=== PATIENT | male | born 1965 | race Caucasian/White ===

== ENCOUNTER 2017-12-10 22:04 | Inpatient (IN) | payer OTHER ==
[2017-12-11 02:30] LABS: ADD MAN DIFF? NO
[2017-12-11 02:33] LABS: BASOPHIL # 0.1 10^3/ul (0.0-0.1); BASOPHILS % 0.6 % (0.0-2.0); EOSINOPHILS # 0.2 10^3/ul (0.0-0.5); EOSINOPHILS % 2.1 % (0.0-7.0); HEMATOCRIT 45.4 % (42.0-52.0); HEMOGLOBIN 14.8 g/dl (14.0-18.0); LYMPHOCYTES % 20.8 % (15.0-51.0); MEAN CORPUSCULAR HEMOGLOBIN 26.9 pg (29.0-33.0); MEAN CORPUSCULAR HGB CONC 32.6 g/dl (32.0-37.0); MEAN CORPUSCULAR VOLUME 82.4 fl (82.0-101.0); MEAN PLATELET VOLUME 9.4 fl (7.4-10.4); MONOCYTE # 0.7 10^3/ul (0.3-0.9); MONOCYTES % 7.5 % (0.0-11.0); NEUTROPHIL # 6.6 10^3/ul (1.6-7.5); NEUTROPHILS % 68.6 % (39.0-77.0); PLATELET COUNT 187 10^3/UL (140-415); RED BLOOD COUNT 5.51 10^6/ul (4.70-6.10); RED CELL DISTRIBUTION WIDTH 14.3 % (11.5-14.5)
[2017-12-11 02:33] LABS: WHITE BLOOD COUNT 9.7 10^3/ul (4.8-10.8)
[2017-12-11 02:58] LABS: ALANINE AMINOTRANSFERASE 25 IU/L (13-69); ALBUMIN 3.8 g/dl (3.3-4.9); ALBUMIN/GLOBULIN RATIO 1.26; ALKALINE PHOSPHATASE 69 IU/L (42-121); ANION GAP 15 (8-16); ASPARTATE AMINO TRANSFERASE 15 IU/L (15-46); BILIRUBIN,INDIRECT 0.3 mg/dl (0-1.1); BILIRUBIN,TOTAL 0.3 mg/dl (0.2-1.3); BLOOD UREA NITROGEN 13 mg/dl (7-20); CALCIUM 8.9 mg/dl (8.4-10.2); CARBON DIOXIDE 27 mmol/L (21-31); CHLORIDE 98 mmol/L (97-110); CREATININE 0.88 mg/dl (0.61-1.24); POTASSIUM 4.3 mmol/L (3.5-5.1); SODIUM 136 mmol/L (135-144); TOTAL PROTEIN 6.8 g/dl (6.1-8.1)
[2017-12-11] MEDS: LEVALBUTEROL (NEB) 1.25 MG/0.5 ML AMP INH (02:59)
[2017-12-11] MEDS: IPRATROPIUM (NEB) 0.5 MG/2.5 ML AMP NEB (02:59)
[2017-12-11 03:06] LABS: MAGNESIUM 1.8 mg/dl (1.7-2.5)
[2017-12-11 03:08] LABS: B-TYPE NATRIURETIC PEPTIDE 82 PG/ML (0-125)
[2017-12-11 03:09] LABS: GLUCOSE 409 mg/dl (70-220); TROPONIN-I < 0.012 ng/ml (0.000-0.120)
[2017-12-11 03:16] LABS: INR 0.99; PROTIME 13.2 Sec (11.9-14.9)
[2017-12-11 03:17] LABS: PARTIAL THROMBOPLASTIN TIME 29.9 Sec (25.0-35.0)
[2017-12-11] MEDS ORDERED: morphine 2 MG INJ IV (04:00)
[2017-12-11] MEDS ORDERED: ONDANSETRON 4 MG INJ IV (04:00)
[2017-12-11] MEDS ORDERED: GLUCOSE GEL 15 GRAM TUBE PO ×2 (04:00)
[2017-12-11] MEDS ORDERED: NITROGLYCERIN (SL) 0.4 MG TAB SL (04:00)
[2017-12-11] MEDS ORDERED: NACL 0.9% 3 ML SYG IV (04:00)
[2017-12-11] MEDS ORDERED: GLUCOSE GEL 15 GRAM TUBE BUCCAL (04:00)
[2017-12-11] MEDS ORDERED: GLUCAGON 1 MG INJ IM (04:00)
[2017-12-11] MEDS ORDERED: DEXTROSE 50% 50 ML SYRINGE IV ×2 (04:00)
[2017-12-11] MEDS: INSULIN LISPRO 100 UNIT/ML VIAL SC (04:41)
[2017-12-11] MEDS: METHYLPREDNISOLONE 125 MG INJ IV ×2 (04:42→09:00)
[2017-12-11] MEDS: LEVOFLOXACIN 750MG/D5W (PMX) 150 ML IVPB (04:42)
[2017-12-11 05:51] LABS: CREATINE KINASE 89 IU/L (23-200)
[2017-12-11 06:04] LABS: CK INDEX 2.2
[2017-12-11 06:17] LABS: CK-MB 1.99 ng/ml (0.0-2.4); TROPONIN-I < 0.012 ng/ml (0.000-0.120)
[2017-12-11] MEDS: FUROSEMIDE 20 MG TAB PO (06:21)
[2017-12-11] MEDS: ALBUTEROL/IPRATROPIUM (NEB) 3 ML AMP INH ×3 (08:00→22:33)
[2017-12-11] MEDS: metFORMIN 850 MG TAB PO ×3 (09:00→16:57)
[2017-12-11] MEDS ORDERED: NON-FORMULARY/PATIENT OWN MED (Liraglutide (Victoza 2-Pak) 1.2 MG) SQ (09:00)
[2017-12-11] MEDS ORDERED: NON-FORMULARY/PATIENT OWN MED (Dapagliflozin Propanediol (Farxiga) 10 MG) PO (09:00)
[2017-12-11] MEDS: ASPIRIN 81 MG TAB PO (09:00)
[2017-12-11] MEDS: FAMOTIDINE 20 MG TAB PO (09:01)
[2017-12-11] MEDS: LISINOPRIL 10 MG TAB PO (09:01)
[2017-12-11] MEDS: GABAPENTIN 300 MG CAP PO ×3 (09:01→20:06)
[2017-12-11] MEDS: ENOXAPARIN 40 MG/0.4 ML SYG SC (09:02)
[2017-12-11] MEDS: INSULIN ASPART [NOVOLOG] 3 ML PEN SC ×7 (09:05→23:58)
[2017-12-11 11:05] LABS: CREATINE KINASE 82 IU/L (23-200)
[2017-12-11 11:16] LABS: CK INDEX 2.5
[2017-12-11 11:20] LABS: CK-MB 2.01 ng/ml (0.0-2.4); TROPONIN-I < 0.012 ng/ml (0.000-0.120)
[2017-12-11] MEDS: GUAIFENESIN/DM 5ML CUP PO (11:50)
[2017-12-11] MEDS: FUROSEMIDE 20 MG INJ IV (17:22)
[2017-12-11] MEDS: ATORVASTATIN 20 MG TAB PO (20:06)
[2017-12-11] MEDS: INSULIN GLARGINE [LANtus] 3 ML PEN SC (20:15)
[2017-12-12] MEDS: GUAIFENESIN/DM 5ML CUP PO (01:10)
[2017-12-12] MEDS: ACCU-CHEK XX (02:43)
[2017-12-12] MEDS: SOD CHLORIDE 0.9% 500 ML IV ×2 (03:25→06:21)
[2017-12-12] MEDS: INSULIN ASPART [NOVOLOG] 3 ML PEN SC ×9 (03:29→21:56)
[2017-12-12] MEDS: FUROSEMIDE 20 MG INJ IV ×2 (06:21→17:21)
[2017-12-12] MEDS: ALBUTEROL/IPRATROPIUM (NEB) 3 ML AMP INH ×4 (07:50→20:06)
[2017-12-12] MEDS: metFORMIN 850 MG TAB PO ×3 (07:54→17:21)
[2017-12-12] MEDS: METHYLPREDNISOLONE 125 MG INJ IV (08:20)
[2017-12-12] MEDS: ASPIRIN 81 MG TAB PO (08:21)
[2017-12-12] MEDS: FAMOTIDINE 20 MG TAB PO (08:21)
[2017-12-12] MEDS: LISINOPRIL 10 MG TAB PO ×2 (08:22→20:39)
[2017-12-12] MEDS: GABAPENTIN 300 MG CAP PO ×3 (08:22→20:39)
[2017-12-12] MEDS: ENOXAPARIN 40 MG/0.4 ML SYG SC (08:23)
[2017-12-12 08:44] LABS: ADD MAN DIFF? NO
[2017-12-12 08:47] LABS: BASOPHILS % 0.2 % (0.0-2.0); EOSINOPHILS % 0.1 % (0.0-7.0); HEMATOCRIT 44.8 % (42.0-52.0); HEMOGLOBIN 14.4 g/dl (14.0-18.0); LYMPHOCYTES # 1.9 10^3/ul (0.8-2.9); LYMPHOCYTES % 9.7 % (15.0-51.0); MEAN CORPUSCULAR HEMOGLOBIN 26.6 pg (29.0-33.0); MEAN CORPUSCULAR HGB CONC 32.1 g/dl (32.0-37.0); MEAN CORPUSCULAR VOLUME 82.7 fl (82.0-101.0); MEAN PLATELET VOLUME 9.6 fl (7.4-10.4); MONOCYTE # 1.4 10^3/ul (0.3-0.9); NEUTROPHIL # 16.4 10^3/ul (1.6-7.5); NEUTROPHILS % 82.2 % (39.0-77.0); PLATELET COUNT 226 10^3/UL (140-415); RED BLOOD COUNT 5.42 10^6/ul (4.70-6.10); RED CELL DISTRIBUTION WIDTH 14.4 % (11.5-14.5)
[2017-12-12 08:47] LABS: WHITE BLOOD COUNT 19.9 10^3/ul (4.8-10.8)
[2017-12-12 09:10] LABS: ALANINE AMINOTRANSFERASE 30 IU/L (13-69); ALBUMIN 3.7 g/dl (3.3-4.9); ALBUMIN/GLOBULIN RATIO 1.05; ALKALINE PHOSPHATASE 69 IU/L (42-121); ANION GAP 15 (8-16); ASPARTATE AMINO TRANSFERASE 13 IU/L (15-46); BLOOD UREA NITROGEN 25 mg/dl (7-20); CARBON DIOXIDE 26 mmol/L (21-31); CHLORIDE 101 mmol/L (97-110); CHOL/HDL RATIO 5.9 RATIO; CHOLESTEROL 202 mg/dl (100-200); CREATININE 1.09 mg/dl (0.61-1.24); GLUCOSE 298 mg/dl (70-220); HDL CHOLESTEROL 34 mg/dl (28-71); LDL CHOLESTEROL,CALCULATED 138 mg/dl; MAGNESIUM 1.8 mg/dl (1.7-2.5); POTASSIUM 4.7 mmol/L (3.5-5.1); SODIUM 137 mmol/L (135-144); TOTAL PROTEIN 7.2 g/dl (6.1-8.1); TRIGLYCERIDES 152 mg/dl (0-149)
[2017-12-12 09:18] LABS: HEMOGLOBIN A1C 6.6 % (0-5.9)
[2017-12-12 09:54] LABS: BILIRUBIN,TOTAL 0.3 mg/dl (0.2-1.3)
[2017-12-12 09:55] LABS: BILIRUBIN,INDIRECT 0.3 mg/dl (0-1.1)
[2017-12-12 10:13] LABS: THYROID STIMULATING HORMONE 0.432 MIU/L (0.465-4.680)
[2017-12-12] MEDS: ATORVASTATIN 20 MG TAB PO (20:39)
[2017-12-12] MEDS: INSULIN GLARGINE [LANtus] 3 ML PEN SC (21:25)
[2017-12-13] MEDS: DIGOXIN 500 MCG INJ IV ×2 (00:01→06:18)
[2017-12-13] MEDS: ALBUTEROL/IPRATROPIUM (NEB) 3 ML AMP HHN (00:40)
[2017-12-13] MEDS: ACCU-CHEK XX (02:07)
[2017-12-13] MEDS: INSULIN ASPART [NOVOLOG] 3 ML PEN SC ×9 (02:16→22:07)
[2017-12-13] MEDS: FUROSEMIDE 20 MG INJ IV (06:17)
[2017-12-13] MEDS: LISINOPRIL 10 MG TAB PO ×2 (08:06→21:21)
[2017-12-13] MEDS: GABAPENTIN 300 MG CAP PO ×3 (08:07→21:23)
[2017-12-13] MEDS: FAMOTIDINE 20 MG TAB PO (08:07)
[2017-12-13] MEDS: ASPIRIN 81 MG TAB PO (08:07)
[2017-12-13] MEDS: ENOXAPARIN 40 MG/0.4 ML SYG SC (08:22)
[2017-12-13] MEDS: metFORMIN 850 MG TAB PO ×3 (08:48→17:21)
[2017-12-13] MEDS ORDERED: predniSONE 20 MG TAB PO (09:00)
[2017-12-13] MEDS: ALBUTEROL/IPRATROPIUM (NEB) 3 ML AMP INH ×4 (11:08→19:45)
[2017-12-13] MEDS: REGADENOSON 0.4 MG/5 ML SYG (12:15)
[2017-12-13] MEDS: FUROSEMIDE 40 MG INJ IV (17:22)
[2017-12-13] MEDS: ATORVASTATIN 20 MG TAB PO (21:21)
[2017-12-13] MEDS: INSULIN GLARGINE [LANtus] 3 ML PEN SC (21:42)
[2017-12-14] MEDS: ACCU-CHEK XX (02:12)
[2017-12-14] MEDS: FUROSEMIDE 40 MG INJ IV ×2 (06:03→17:17)
[2017-12-14 06:59] LABS: ADD MAN DIFF? NO
[2017-12-14 07:11] LABS: WHITE BLOOD COUNT 11.8 10^3/ul (4.8-10.8)
[2017-12-14 07:11] LABS: BASOPHILS % 0.3 % (0.0-2.0); EOSINOPHILS # 0.1 10^3/ul (0.0-0.5); EOSINOPHILS % 0.9 % (0.0-7.0); HEMATOCRIT 51.3 % (42.0-52.0); HEMOGLOBIN 16.4 g/dl (14.0-18.0); LYMPHOCYTES # 2.5 10^3/ul (0.8-2.9); LYMPHOCYTES % 20.8 % (15.0-51.0); MEAN CORPUSCULAR HEMOGLOBIN 26.4 pg (29.0-33.0); MEAN CORPUSCULAR VOLUME 82.6 fl (82.0-101.0); MEAN PLATELET VOLUME 9.5 fl (7.4-10.4); MONOCYTE # 1.1 10^3/ul (0.3-0.9); MONOCYTES % 9.4 % (0.0-11.0); NEUTROPHILS % 68.3 % (39.0-77.0); PLATELET COUNT 200 10^3/UL (140-415); RED BLOOD COUNT 6.21 10^6/ul (4.70-6.10); RED CELL DISTRIBUTION WIDTH 14.3 % (11.5-14.5)
[2017-12-14 07:18] LABS: MAGNESIUM 1.9 mg/dl (1.7-2.5)
[2017-12-14 07:18] LABS: PHOSPHORUS 4.4 mg/dl (2.5-4.9)
[2017-12-14 07:29] LABS: ALANINE AMINOTRANSFERASE 29 IU/L (13-69); ALBUMIN 3.8 g/dl (3.3-4.9); ALBUMIN/GLOBULIN RATIO 1.15; ALKALINE PHOSPHATASE 71 IU/L (42-121); ANION GAP 18 (8-16); ASPARTATE AMINO TRANSFERASE 15 IU/L (15-46); BILIRUBIN,INDIRECT 0.4 mg/dl (0-1.1); BILIRUBIN,TOTAL 0.4 mg/dl (0.2-1.3); BLOOD UREA NITROGEN 27 mg/dl (7-20); CALCIUM 8.8 mg/dl (8.4-10.2); CARBON DIOXIDE 28 mmol/L (21-31); CHLORIDE 99 mmol/L (97-110); CREATININE 0.86 mg/dl (0.61-1.24); GLUCOSE 237 mg/dl (70-220); POTASSIUM 4.5 mmol/L (3.5-5.1); SODIUM 140 mmol/L (135-144); TOTAL PROTEIN 7.1 g/dl (6.1-8.1)
[2017-12-14] MEDS: LISINOPRIL 10 MG TAB PO ×2 (08:33→20:25)
[2017-12-14] MEDS: FAMOTIDINE 20 MG TAB PO (08:33)
[2017-12-14] MEDS: metFORMIN 850 MG TAB PO ×3 (08:33→17:17)
[2017-12-14] MEDS: ASPIRIN 81 MG TAB PO (08:34)
[2017-12-14] MEDS: GABAPENTIN 300 MG CAP PO ×3 (08:34→20:25)
[2017-12-14] MEDS: INSULIN ASPART [NOVOLOG] 3 ML PEN SC ×7 (08:37→20:36)
[2017-12-14] MEDS: ENOXAPARIN 40 MG/0.4 ML SYG SC (08:37)
[2017-12-14] MEDS: ALBUTEROL/IPRATROPIUM (NEB) 3 ML AMP INH ×4 (09:33→20:21)
[2017-12-14] MEDS: ACETAMINOPHEN 325 MG TAB PO (19:48)
[2017-12-14] MEDS: ATORVASTATIN 40 MG TAB PO (20:25)
[2017-12-14] MEDS: INSULIN GLARGINE [LANtus] 3 ML PEN SC (20:28)
[2017-12-14] MEDS ORDERED: EXENATIDE 250 MCG/ML 2.4ML PEN SC (21:00)
[2017-12-15] MEDS: ACCU-CHEK XX (02:00)
[2017-12-15] MEDS: FUROSEMIDE 40 MG INJ IV ×2 (06:56→17:36)
[2017-12-15 07:24] LABS: ADD MAN DIFF? NO
[2017-12-15 07:27] LABS: WHITE BLOOD COUNT 10.9 10^3/ul (4.8-10.8)
[2017-12-15 07:27] LABS: BASOPHILS % 0.3 % (0.0-2.0); EOSINOPHILS # 0.2 10^3/ul (0.0-0.5); EOSINOPHILS % 1.8 % (0.0-7.0); HEMATOCRIT 51.8 % (42.0-52.0); HEMOGLOBIN 16.4 g/dl (14.0-18.0); LYMPHOCYTES # 2.5 10^3/ul (0.8-2.9); LYMPHOCYTES % 23.3 % (15.0-51.0); MEAN CORPUSCULAR HEMOGLOBIN 26.3 pg (29.0-33.0); MEAN CORPUSCULAR HGB CONC 31.7 g/dl (32.0-37.0); MEAN PLATELET VOLUME 9.1 fl (7.4-10.4); NEUTROPHIL # 7.1 10^3/ul (1.6-7.5); NEUTROPHILS % 65.2 % (39.0-77.0); PLATELET COUNT 198 10^3/UL (140-415); RED BLOOD COUNT 6.24 10^6/ul (4.70-6.10); RED CELL DISTRIBUTION WIDTH 14.1 % (11.5-14.5)
[2017-12-15 07:48] LABS: ANION GAP 13 (8-16); BLOOD UREA NITROGEN 31 mg/dl (7-20); CALCIUM 8.6 mg/dl (8.4-10.2); CARBON DIOXIDE 33 mmol/L (21-31); CHLORIDE 98 mmol/L (97-110); CREATININE 1.21 mg/dl (0.61-1.24); GLUCOSE 216 mg/dl (70-220); POTASSIUM 5.2 mmol/L (3.5-5.1); SODIUM 139 mmol/L (135-144)
[2017-12-15 07:51] LABS: PHOSPHORUS 4.2 mg/dl (2.5-4.9)
[2017-12-15 07:51] LABS: MAGNESIUM 1.8 mg/dl (1.7-2.5)
[2017-12-15] MEDS ORDERED: EMPAGLIFLOZIN 10 MG TABLET PO (08:00)
[2017-12-15] MEDS: FAMOTIDINE 20 MG TAB PO (08:26)
[2017-12-15] MEDS: REPAGLINIDE 2 MG TAB PO ×3 (08:26→17:33)
[2017-12-15] MEDS: LISINOPRIL 10 MG TAB PO (08:26)
[2017-12-15] MEDS: GABAPENTIN 300 MG CAP PO ×3 (08:26→21:00)
[2017-12-15] MEDS: ASPIRIN 81 MG TAB PO (08:27)
[2017-12-15] MEDS: metFORMIN 500 MG TAB PO ×3 (08:27→17:33)
[2017-12-15] MEDS: INSULIN ASPART [NOVOLOG] 3 ML PEN SC ×7 (08:28→22:05)
[2017-12-15] MEDS: ENOXAPARIN 40 MG/0.4 ML SYG SC (08:29)
[2017-12-15] MEDS: ALBUTEROL/IPRATROPIUM (NEB) 3 ML AMP INH ×4 (09:29→19:43)
[2017-12-15] MEDS: LINAGLIPTIN 5 MG TABLET PO (10:10)
[2017-12-15] MEDS: TIOTROPIUM 18 MCG CAPSULE INHA DEV INH (10:10)
[2017-12-15] MEDS: FLUTICASONE/VILANTEROL 100-25 INH (10:10)
[2017-12-15] MEDS: INSULIN GLARGINE [LANtus] 3 ML PEN SC ×2 (10:12→23:45)
[2017-12-15] MEDS: ATORVASTATIN 40 MG TAB PO (22:00)
[2017-12-15] MEDS: LOSARTAN 25 MG TAB PO (23:23)
[2017-12-16] MEDS: INSULIN GLARGINE [LANtus] 3 ML PEN SC ×2 (00:04→23:32)
[2017-12-16] MEDS: ACCU-CHEK XX (00:06)
[2017-12-16] MEDS: FUROSEMIDE 40 MG INJ IV ×2 (06:11→17:19)
[2017-12-16 07:59] LABS: ADD MAN DIFF? NO
[2017-12-16] MEDS: ALBUTEROL/IPRATROPIUM (NEB) 3 ML AMP INH ×4 (08:00→21:04)
[2017-12-16 08:16] LABS: BASOPHILS % 0.2 % (0.0-2.0); EOSINOPHILS # 0.3 10^3/ul (0.0-0.5); EOSINOPHILS % 2.3 % (0.0-7.0); LYMPHOCYTES # 2.8 10^3/ul (0.8-2.9); LYMPHOCYTES % 22.6 % (15.0-51.0); MEAN CORPUSCULAR HEMOGLOBIN 26.1 pg (29.0-33.0); MEAN CORPUSCULAR VOLUME 81.6 fl (82.0-101.0); MEAN PLATELET VOLUME 9.8 fl (7.4-10.4); MONOCYTES % 8.4 % (0.0-11.0); NEUTROPHIL # 8.1 10^3/ul (1.6-7.5); NEUTROPHILS % 66.2 % (39.0-77.0); PLATELET COUNT 198 10^3/UL (140-415); RED BLOOD COUNT 6.13 10^6/ul (4.70-6.10); RED CELL DISTRIBUTION WIDTH 14.5 % (11.5-14.5)
[2017-12-16 08:16] LABS: WHITE BLOOD COUNT 12.2 10^3/ul (4.8-10.8)
[2017-12-16] MEDS: REPAGLINIDE 2 MG TAB PO ×3 (08:20→17:16)
[2017-12-16] MEDS: FAMOTIDINE 20 MG TAB PO (08:21)
[2017-12-16] MEDS: LINAGLIPTIN 5 MG TABLET PO (08:21)
[2017-12-16] MEDS: GABAPENTIN 300 MG CAP PO ×3 (08:21→23:21)
[2017-12-16] MEDS: LOSARTAN 25 MG TAB PO ×2 (08:22→21:00)
[2017-12-16] MEDS: ASPIRIN 81 MG TAB PO (08:22)
[2017-12-16] MEDS: TIOTROPIUM 18 MCG CAPSULE INHA DEV INH (08:22)
[2017-12-16 08:23] LABS: ANION GAP 17 (8-16); BLOOD UREA NITROGEN 37 mg/dl (7-20); CALCIUM 8.6 mg/dl (8.4-10.2); CARBON DIOXIDE 32 mmol/L (21-31); CHLORIDE 93 mmol/L (97-110); CREATININE 1.21 mg/dl (0.61-1.24); GLUCOSE 245 mg/dl (70-220); POTASSIUM 4.6 mmol/L (3.5-5.1); SODIUM 137 mmol/L (135-144)
[2017-12-16] MEDS: FLUTICASONE/VILANTEROL 100-25 INH (08:25)
[2017-12-16] MEDS: INSULIN ASPART [NOVOLOG] 3 ML PEN SC ×7 (08:27→23:30)
[2017-12-16] MEDS: ENOXAPARIN 40 MG/0.4 ML SYG SC (08:27)
[2017-12-16] MEDS: metFORMIN 500 MG TAB PO ×3 (08:33→17:16)
[2017-12-16 08:37] LABS: PHOSPHORUS 3.7 mg/dl (2.5-4.9)
[2017-12-16 08:37] LABS: MAGNESIUM 1.9 mg/dl (1.7-2.5)
[2017-12-16] MEDS: ACETAMINOPHEN 325 MG TAB PO (11:25)
[2017-12-16] MEDS: CEFAZOLIN 1 GM/50 ML (PMX) 50 ML IVPB (13:00)
[2017-12-16] MEDS ORDERED: INSULIN ASPART [NOVOLOG] 3 ML PEN SC (18:05)
[2017-12-16] MEDS ORDERED: INSULIN GLARGINE [LANtus] 3 ML PEN SC (21:00)
[2017-12-16] MEDS: METOPROLOL (XL) 50 MG TAB PO (21:00)
[2017-12-16] MEDS: ATORVASTATIN 40 MG TAB PO (23:21)
[2017-12-17] MEDS: ACCU-CHEK XX (02:00)
[2017-12-17] MEDS: FUROSEMIDE 40 MG INJ IV ×2 (06:55→17:56)
[2017-12-17] MEDS: INSULIN ASPART [NOVOLOG] 3 ML PEN SC ×8 (08:00→21:55)
[2017-12-17] MEDS: ALBUTEROL/IPRATROPIUM (NEB) 3 ML AMP INH ×4 (08:04→19:42)
[2017-12-17 08:37] LABS: ADD MAN DIFF? NO
[2017-12-17 08:43] LABS: WHITE BLOOD COUNT 13.3 10^3/ul (4.8-10.8)
[2017-12-17 08:43] LABS: BASOPHILS % 0.2 % (0.0-2.0); EOSINOPHILS # 0.2 10^3/ul (0.0-0.5); EOSINOPHILS % 1.7 % (0.0-7.0); HEMATOCRIT 50.7 % (42.0-52.0); HEMOGLOBIN 16.4 g/dl (14.0-18.0); LYMPHOCYTES # 2.8 10^3/ul (0.8-2.9); LYMPHOCYTES % 20.9 % (15.0-51.0); MEAN CORPUSCULAR HEMOGLOBIN 26.8 pg (29.0-33.0); MEAN CORPUSCULAR HGB CONC 32.3 g/dl (32.0-37.0); MEAN PLATELET VOLUME 9.8 fl (7.4-10.4); MONOCYTES % 7.3 % (0.0-11.0); NEUTROPHIL # 9.2 10^3/ul (1.6-7.5); NEUTROPHILS % 69.4 % (39.0-77.0); PLATELET COUNT 199 10^3/UL (140-415); RED BLOOD COUNT 6.11 10^6/ul (4.70-6.10); RED CELL DISTRIBUTION WIDTH 14.6 % (11.5-14.5)
[2017-12-17 08:57] LABS: ANION GAP 17 (8-16); BLOOD UREA NITROGEN 37 mg/dl (7-20); CALCIUM 8.9 mg/dl (8.4-10.2); CARBON DIOXIDE 32 mmol/L (21-31); CHLORIDE 95 mmol/L (97-110); CREATININE 1.23 mg/dl (0.61-1.24); GLUCOSE 179 mg/dl (70-220); POTASSIUM 5.1 mmol/L (3.5-5.1); SODIUM 139 mmol/L (135-144)
[2017-12-17] MEDS: ENOXAPARIN 40 MG/0.4 ML SYG SC (09:00)
[2017-12-17] MEDS ORDERED: METOPROLOL (XL) 50 MG TAB PO (09:00)
[2017-12-17 09:01] LABS: MAGNESIUM 1.8 mg/dl (1.7-2.5)
[2017-12-17] MEDS: LINAGLIPTIN 5 MG TABLET PO (09:06)
[2017-12-17] MEDS: FAMOTIDINE 20 MG TAB PO (09:06)
[2017-12-17] MEDS: GABAPENTIN 300 MG CAP PO ×3 (09:06→21:24)
[2017-12-17] MEDS: metFORMIN 500 MG TAB PO ×3 (09:07→17:56)
[2017-12-17] MEDS: LOSARTAN 25 MG TAB PO ×2 (09:07→21:54)
[2017-12-17] MEDS: REPAGLINIDE 2 MG TAB PO ×3 (09:07→17:56)
[2017-12-17] MEDS: METOPROLOL (XL) 50 MG TAB PO (09:08)
[2017-12-17] MEDS: FLUTICASONE/VILANTEROL 100-25 INH (09:08)
[2017-12-17] MEDS: ASPIRIN 81 MG TAB PO (09:08)
[2017-12-17 09:10] LABS: INR 0.98; PROTIME 13.1 Sec (11.9-14.9)
[2017-12-17] MEDS: TIOTROPIUM 18 MCG CAPSULE INHA DEV INH (12:19)
[2017-12-17] MEDS ORDERED: FENTAnyl 50 MCG/ML VIAL (14:17)
[2017-12-17] MEDS ORDERED: MIDAZOLAM 1 MG/ML 2 ML INJ (14:17)
[2017-12-17] MEDS ORDERED: PROPOFOL 100 ML (14:18)
[2017-12-17] MEDS ORDERED: LIDOCAINE 1%/EPI 30 ML INJ (14:24)
[2017-12-17] MEDS: POLYMYXIN/BACITRACIN 1L IRRIG IRR (15:50)
[2017-12-17] MEDS ORDERED: SOD CHLORIDE 0.9% 500 ML (17:23)
[2017-12-17] MEDS: ACETAMINOPHEN 325 MG TAB PO (17:56)
[2017-12-17] MEDS: CEFAZOLIN 2 GM/50 ML (PMX) 50 ML IVPB ×2 (18:45→22:11)
[2017-12-17] MEDS: ATORVASTATIN 40 MG TAB PO (21:24)
[2017-12-17] MEDS: INSULIN GLARGINE [LANtus] 3 ML PEN SC (21:26)
[2017-12-18] MEDS: ACCU-CHEK XX (02:00)
[2017-12-18] MEDS: FUROSEMIDE 40 MG INJ IV ×2 (05:25→17:07)
[2017-12-18] MEDS: CEFAZOLIN 2 GM/50 ML (PMX) 50 ML IVPB ×2 (05:25→15:02)
[2017-12-18 06:11] LABS: ADD MAN DIFF? NO
[2017-12-18 06:14] LABS: BASOPHILS % 0.2 % (0.0-2.0); EOSINOPHILS # 0.2 10^3/ul (0.0-0.5); EOSINOPHILS % 1.3 % (0.0-7.0); HEMATOCRIT 47.1 % (42.0-52.0); HEMOGLOBIN 15.3 g/dl (14.0-18.0); LYMPHOCYTES # 2.6 10^3/ul (0.8-2.9); LYMPHOCYTES % 19.5 % (15.0-51.0); MEAN CORPUSCULAR HEMOGLOBIN 26.7 pg (29.0-33.0); MEAN CORPUSCULAR HGB CONC 32.5 g/dl (32.0-37.0); MEAN CORPUSCULAR VOLUME 82.2 fl (82.0-101.0); MEAN PLATELET VOLUME 9.6 fl (7.4-10.4); MONOCYTE # 1.3 10^3/ul (0.3-0.9); MONOCYTES % 9.6 % (0.0-11.0); NEUTROPHIL # 9.1 10^3/ul (1.6-7.5); NEUTROPHILS % 68.9 % (39.0-77.0); PLATELET COUNT 177 10^3/UL (140-415); RED BLOOD COUNT 5.73 10^6/ul (4.70-6.10); RED CELL DISTRIBUTION WIDTH 14.6 % (11.5-14.5)
[2017-12-18 06:14] LABS: WHITE BLOOD COUNT 13.2 10^3/ul (4.8-10.8)
[2017-12-18 06:53] LABS: MAGNESIUM 1.9 mg/dl (1.7-2.5)
[2017-12-18 06:53] LABS: PHOSPHORUS 4.1 mg/dl (2.5-4.9)
[2017-12-18 06:59] LABS: ANION GAP 17 (8-16); BLOOD UREA NITROGEN 38 mg/dl (7-20); CALCIUM 8.6 mg/dl (8.4-10.2); CARBON DIOXIDE 26 mmol/L (21-31); CHLORIDE 99 mmol/L (97-110); CREATININE 1.03 mg/dl (0.61-1.24); GLUCOSE 172 mg/dl (70-220); POTASSIUM 4.9 mmol/L (3.5-5.1); SODIUM 137 mmol/L (135-144)
[2017-12-18] MEDS: ALBUTEROL/IPRATROPIUM (NEB) 3 ML AMP INH ×3 (08:00→16:00)
[2017-12-18] MEDS: FLUTICASONE/VILANTEROL 100-25 INH (08:57)
[2017-12-18] MEDS: TIOTROPIUM 18 MCG CAPSULE INHA DEV INH (08:57)
[2017-12-18] MEDS: morphine LIQ (10 MG/5 ML) CUP PO (08:58)
[2017-12-18] MEDS: LINAGLIPTIN 5 MG TABLET PO (09:00)
[2017-12-18] MEDS: LOSARTAN 25 MG TAB PO (09:00)
[2017-12-18] MEDS: ASPIRIN 81 MG TAB PO (09:00)
[2017-12-18] MEDS: metFORMIN 500 MG TAB PO ×3 (09:00→17:02)
[2017-12-18] MEDS: FAMOTIDINE 20 MG TAB PO (09:00)
[2017-12-18] MEDS: GABAPENTIN 300 MG CAP PO ×2 (09:01→12:32)
[2017-12-18] MEDS: METOPROLOL (XL) 50 MG TAB PO (09:01)
[2017-12-18] MEDS: INSULIN ASPART [NOVOLOG] 3 ML PEN SC ×5 (09:08→17:07)
== END 2017-12-18 17:11 | disposition home or self-care (01) | DRG 227 ==
LOC: E/R 22:04 → MS4 12-11 03:47
PROVIDERS: Internal Medicine
PROC: 0JH608Z Insertion of Defibrillator Generator into Chest Subcutaneous Tissue and Fascia, Open Approach (ICD-10-PCS; principal; 2017-12-17 14:30)
PROC: 02HK3KZ Insertion of Defibrillator Lead into Right Ventricle, Percutaneous Approach (ICD-10-PCS; 2017-12-17 14:30)
DX: I11.0 Hypertensive heart disease with heart failure (principal); J44.1 Chronic obstructive pulmonary disease with (acute) exacerbation; Z68.41 Body mass index [BMI] 40.0-44.9, adult; I50.23 Acute on chronic systolic (congestive) heart failure; I25.5 Ischemic cardiomyopathy; E66.01 Morbid (severe) obesity due to excess calories; E11.65 Type 2 diabetes mellitus with hyperglycemia; E11.69 Type 2 diabetes mellitus with other specified complication; E78.5 Hyperlipidemia, unspecified; F17.210 Nicotine dependence, cigarettes, uncomplicated; Z79.82 Long term (current) use of aspirin; Z79.4 Long term (current) use of insulin; Z91.14 Patient's other noncompliance with medication regimen
CPT/HCPCS: 33206; 36415; 71045; 78452; 80048; 80053; 80061; 82550; 82553; 82962; 83036; 83735; 83880; 84100; 84443; 84484; 85025; 85610; 85730; 93005; 93017; 93306; 94010; 94640; 94664; 96372; 96374; 96375; 99285-25

== ENCOUNTER 2018-03-22 10:39 | Inpatient (IN) | payer OTHER ==
[2018-03-22 11:42] LABS: ADD MAN DIFF? NO
[2018-03-22 11:43] LABS: WHITE BLOOD COUNT 11.5 10^3/ul (4.8-10.8)
[2018-03-22 11:43] LABS: BASOPHILS % 0.3 % (0.0-2.0); EOSINOPHILS # 0.2 10^3/ul (0.0-0.5); EOSINOPHILS % 1.5 % (0.0-7.0); HEMATOCRIT 45.9 % (42.0-52.0); HEMOGLOBIN 14.5 g/dl (14.0-18.0); LYMPHOCYTES # 1.7 10^3/ul (0.8-2.9); LYMPHOCYTES % 14.4 % (15.0-51.0); MEAN CORPUSCULAR HEMOGLOBIN 26.2 pg (29.0-33.0); MEAN CORPUSCULAR HGB CONC 31.6 g/dl (32.0-37.0); MEAN CORPUSCULAR VOLUME 82.9 fl (82.0-101.0); MEAN PLATELET VOLUME 9.2 fl (7.4-10.4); MONOCYTE # 0.9 10^3/ul (0.3-0.9); MONOCYTES % 7.5 % (0.0-11.0); NEUTROPHIL # 8.8 10^3/ul (1.6-7.5); PLATELET COUNT 214 10^3/UL (140-415); RED BLOOD COUNT 5.54 10^6/ul (4.70-6.10); RED CELL DISTRIBUTION WIDTH 14.2 % (11.5-14.5)
[2018-03-22] MEDS: FUROSEMIDE 40 MG INJ IV ×2 (11:53→15:59)
[2018-03-22 12:24] LABS: ANION GAP 12 (8-16); BLOOD UREA NITROGEN 23 mg/dl (7-20); CALCIUM 8.8 mg/dl (8.4-10.2); CARBON DIOXIDE 29 mmol/L (21-31); CHLORIDE 100 mmol/L (97-110); CREATININE 1.16 mg/dl (0.61-1.24); POTASSIUM 5.2 mmol/L (3.5-5.1); SODIUM 136 mmol/L (135-144)
[2018-03-22 12:25] LABS: GLUCOSE 420 mg/dl (70-220)
[2018-03-22 12:36] LABS: B-TYPE NATRIURETIC PEPTIDE 75 PG/ML (0-125); TROPONIN-I 0.024 ng/ml (0.000-0.120)
[2018-03-22 12:45] LABS: INR 0.93; PARTIAL THROMBOPLASTIN TIME 29.2 Sec (23.0-35.0); PROTIME 12.6 Sec (11.9-14.9)
[2018-03-22] MEDS ORDERED: ONDANSETRON 4 MG INJ IV ×2 (13:00→15:00)
[2018-03-22] MEDS ORDERED: ACETAMINOPHEN 325 MG TAB PO ×2 (13:00→15:00)
[2018-03-22] MEDS: INSULIN LISPRO 100 UNIT/ML VIAL SC (13:02)
[2018-03-22] MEDS ORDERED: NACL 0.9% 3 ML SYG IV (15:00)
[2018-03-22] MEDS: INSULIN ASPART [NOVOLOG] 3 ML PEN SC ×4 (15:53→20:45)
[2018-03-22] MEDS ORDERED: DEXTROSE 50% 50 ML SYRINGE IV ×2 (16:00)
[2018-03-22] MEDS ORDERED: GLUCAGON 1 MG INJ IM (16:00)
[2018-03-22] MEDS ORDERED: GLUCOSE GEL 15 GRAM TUBE PO ×2 (16:00)
[2018-03-22] MEDS ORDERED: GLUCOSE GEL 15 GRAM TUBE BUCCAL (16:00)
[2018-03-22] MEDS: ATORVASTATIN 40 MG TAB PO (20:45)
[2018-03-22] MEDS: GABAPENTIN 300 MG CAP PO (20:45)
[2018-03-22 21:42] LABS: CREATINE KINASE 64 IU/L (23-200)
[2018-03-22] MEDS: INSULIN GLARGINE [LANTus] (100 UNITS/ML) SYG SC (21:53)
[2018-03-22 21:54] LABS: CK INDEX 2.8; CK-MB 1.82 ng/ml (0.0-2.4); TROPONIN-I 0.048 ng/ml (0.000-0.120)
[2018-03-23] MEDS: AL HYDROX/MG HYDROX/SIMETH 30 ML CUP PO (00:17)
[2018-03-23] MEDS: ACCU-CHEK XX (02:00)
[2018-03-23 06:16] LABS: ADD MAN DIFF? NO
[2018-03-23 06:29] LABS: WHITE BLOOD COUNT 12.8 10^3/ul (4.8-10.8)
[2018-03-23 06:29] LABS: BASOPHIL # 0.1 10^3/ul (0.0-0.1); BASOPHILS % 0.4 % (0.0-2.0); EOSINOPHILS # 0.2 10^3/ul (0.0-0.5); EOSINOPHILS % 1.4 % (0.0-7.0); HEMATOCRIT 44.7 % (42.0-52.0); HEMOGLOBIN 14.2 g/dl (14.0-18.0); LYMPHOCYTES # 2.2 10^3/ul (0.8-2.9); LYMPHOCYTES % 17.4 % (15.0-51.0); MEAN CORPUSCULAR HEMOGLOBIN 26.2 pg (29.0-33.0); MEAN CORPUSCULAR HGB CONC 31.8 g/dl (32.0-37.0); MEAN CORPUSCULAR VOLUME 82.6 fl (82.0-101.0); MEAN PLATELET VOLUME 9.6 fl (7.4-10.4); MONOCYTE # 1.1 10^3/ul (0.3-0.9); MONOCYTES % 8.2 % (0.0-11.0); NEUTROPHIL # 9.3 10^3/ul (1.6-7.5); NEUTROPHILS % 72.4 % (39.0-77.0); PLATELET COUNT 189 10^3/UL (140-415); RED BLOOD COUNT 5.41 10^6/ul (4.70-6.10); RED CELL DISTRIBUTION WIDTH 14.3 % (11.5-14.5)
[2018-03-23] MEDS: FUROSEMIDE 40 MG INJ IV ×2 (06:42→17:41)
[2018-03-23] MEDS: PANTOPRAZOLE (EC) 40 MG TAB PO (06:42)
[2018-03-23 07:00] LABS: CREATINE KINASE 53 IU/L (23-200)
[2018-03-23 07:08] LABS: CK INDEX 2.9; CK-MB 1.54 ng/ml (0.0-2.4); TROPONIN-I 0.044 ng/ml (0.000-0.120)
[2018-03-23 07:43] LABS: ALANINE AMINOTRANSFERASE 16 IU/L (13-69); ALBUMIN 3.9 g/dl (3.3-4.9); ALBUMIN/GLOBULIN RATIO 1.18; ALKALINE PHOSPHATASE 62 IU/L (42-121); ANION GAP 13 (8-16); ASPARTATE AMINO TRANSFERASE 16 IU/L (15-46); BILIRUBIN,INDIRECT 0.4 mg/dl (0-1.1); BILIRUBIN,TOTAL 0.4 mg/dl (0.2-1.3); BLOOD UREA NITROGEN 24 mg/dl (7-20); CALCIUM 8.8 mg/dl (8.4-10.2); CARBON DIOXIDE 27 mmol/L (21-31); CHLORIDE 102 mmol/L (97-110); CHOL/HDL RATIO 6.9 RATIO; CHOLESTEROL 187 mg/dl (100-200); CREATININE 0.95 mg/dl (0.61-1.24); GLUCOSE 196 mg/dl (70-220); HDL CHOLESTEROL 27 mg/dl (28-71); LDL CHOLESTEROL,CALCULATED 127 mg/dl; MAGNESIUM 1.9 mg/dl (1.7-2.5); PHOSPHORUS 3.9 mg/dl (2.5-4.9); POTASSIUM 4.3 mmol/L (3.5-5.1); SODIUM 138 mmol/L (135-144); TOTAL PROTEIN 7.2 g/dl (6.1-8.1); TRIGLYCERIDES 165 mg/dl (0-149)
[2018-03-23] MEDS: GABAPENTIN 300 MG CAP PO ×3 (08:08→20:19)
[2018-03-23] MEDS: LOSARTAN 50 MG TAB PO (08:08)
[2018-03-23] MEDS: ASPIRIN (EC) 81 MG TAB PO (08:08)
[2018-03-23] MEDS: METOPROLOL (XL) 50 MG TAB PO (08:08)
[2018-03-23] MEDS: ENOXAPARIN 40 MG/0.4 ML SYG SC (08:09)
[2018-03-23] MEDS: INSULIN ASPART [NOVOLOG] 3 ML PEN SC ×8 (08:10→20:29)
[2018-03-23 08:46] LABS: THYROID STIMULATING HORMONE 0.497 MIU/L (0.465-4.680)
[2018-03-23 09:41] LABS: HEMOGLOBIN A1C 10.1 % (0-5.9)
[2018-03-23] MEDS: ATORVASTATIN 40 MG TAB PO (20:19)
[2018-03-23] MEDS: INSULIN GLARGINE [LANTus] (100 UNITS/ML) SYG SC (20:28)
[2018-03-24] MEDS: ACCU-CHEK XX (02:27)
[2018-03-24] MEDS: PANTOPRAZOLE (EC) 40 MG TAB PO (06:26)
[2018-03-24] MEDS: FUROSEMIDE 40 MG INJ IV (06:35)
[2018-03-24 07:11] LABS: TROPONIN-I 0.029 ng/ml (0.000-0.120)
[2018-03-24] MEDS: INSULIN ASPART [NOVOLOG] 3 ML PEN SC ×7 (08:24→20:34)
[2018-03-24] MEDS: ASPIRIN (EC) 81 MG TAB PO (08:46)
[2018-03-24] MEDS: LOSARTAN 50 MG TAB PO (08:47)
[2018-03-24] MEDS: SPIRONOLACTONE 25 MG TAB PO (08:47)
[2018-03-24] MEDS: GABAPENTIN 300 MG CAP PO ×3 (08:48→20:25)
[2018-03-24] MEDS: METOPROLOL (XL) 50 MG TAB PO (08:48)
[2018-03-24] MEDS: ENOXAPARIN 40 MG/0.4 ML SYG SC (08:53)
[2018-03-24] MEDS ORDERED: ALBUTEROL/IPRATROPIUM (NEB) 3 ML AMP HHN (13:00)
[2018-03-24] MEDS: ALBUTEROL/IPRATROPIUM (NEB) 3 ML AMP NEB ×2 (16:56→22:36)
[2018-03-24] MEDS: ATORVASTATIN 40 MG TAB PO (20:25)
[2018-03-24] MEDS: FLUTICASONE/VILANTEROL 200-25 INH DEVICE INH (20:26)
[2018-03-24] MEDS: INSULIN GLARGINE [LANTus] (100 UNITS/ML) SYG SC (20:35)
[2018-03-25] MEDS: ACCU-CHEK XX (02:39)
[2018-03-25 06:13] LABS: ADD MAN DIFF? NO
[2018-03-25 06:20] LABS: BASOPHILS % 0.4 % (0.0-2.0); EOSINOPHILS # 0.2 10^3/ul (0.0-0.5); EOSINOPHILS % 1.5 % (0.0-7.0); HEMATOCRIT 43.4 % (42.0-52.0); LYMPHOCYTES % 18.2 % (15.0-51.0); MEAN CORPUSCULAR HEMOGLOBIN 26.3 pg (29.0-33.0); MEAN CORPUSCULAR HGB CONC 32.3 g/dl (32.0-37.0); MEAN CORPUSCULAR VOLUME 81.6 fl (82.0-101.0); MEAN PLATELET VOLUME 9.7 fl (7.4-10.4); MONOCYTES % 8.8 % (0.0-11.0); NEUTROPHIL # 7.8 10^3/ul (1.6-7.5); NEUTROPHILS % 70.7 % (39.0-77.0); PLATELET COUNT 197 10^3/UL (140-415); RED BLOOD COUNT 5.32 10^6/ul (4.70-6.10); RED CELL DISTRIBUTION WIDTH 14.4 % (11.5-14.5)
[2018-03-25 06:35] LABS: ANION GAP 12 (8-16); BLOOD UREA NITROGEN 28 mg/dl (7-20); CALCIUM 8.4 mg/dl (8.4-10.2); CARBON DIOXIDE 26 mmol/L (21-31); CHLORIDE 103 mmol/L (97-110); CREATININE 0.99 mg/dl (0.61-1.24); GLUCOSE 245 mg/dl (70-220); POTASSIUM 4.8 mmol/L (3.5-5.1); SODIUM 136 mmol/L (135-144)
[2018-03-25 06:38] LABS: MAGNESIUM 2.2 mg/dl (1.7-2.5)
[2018-03-25 06:38] LABS: PHOSPHORUS 3.4 mg/dl (2.5-4.9)
[2018-03-25] MEDS: PANTOPRAZOLE (EC) 40 MG TAB PO (06:43)
[2018-03-25] MEDS: INSULIN ASPART [NOVOLOG] 3 ML PEN SC ×4 (08:37→12:03)
[2018-03-25] MEDS: ASPIRIN (EC) 81 MG TAB PO (09:34)
[2018-03-25] MEDS: SPIRONOLACTONE 25 MG TAB PO (09:35)
[2018-03-25] MEDS: GABAPENTIN 300 MG CAP PO ×2 (09:35→12:08)
[2018-03-25] MEDS: METOPROLOL (XL) 50 MG TAB PO (09:36)
[2018-03-25] MEDS: FUROSEMIDE 40 MG TAB PO (09:36)
[2018-03-25] MEDS: LOSARTAN 50 MG TAB PO (09:36)
[2018-03-25] MEDS: ENOXAPARIN 40 MG/0.4 ML SYG SC (09:42)
[2018-03-25] MEDS: FLUTICASONE/VILANTEROL 200-25 INH DEVICE INH (09:45)
== END 2018-03-25 12:53 | disposition home or self-care (01) | DRG 293 ==
LOC: E/R 10:39 → TEL 12:41
DX: I11.0 Hypertensive heart disease with heart failure (principal); I50.23 Acute on chronic systolic (congestive) heart failure; I42.9 Cardiomyopathy, unspecified; E11.65 Type 2 diabetes mellitus with hyperglycemia; J44.9 Chronic obstructive pulmonary disease, unspecified; E87.5 Hyperkalemia; E78.5 Hyperlipidemia, unspecified; Z95.810 Presence of automatic (implantable) cardiac defibrillator; Z87.891 Personal history of nicotine dependence; G47.33 Obstructive sleep apnea (adult) (pediatric)
CPT/HCPCS: 36415; 71045; 80048; 80053; 80061; 82550; 82553; 82962; 83036; 83735; 83880; 84100; 84443; 84484; 85025; 85610; 85730; 93005; 94640; 94660; 94664; 96374; 99285-25; G0378

== ENCOUNTER 2018-04-16 15:14 | Emergency (ER) | payer OTHER ==
[2018-04-16] MEDS: FUROSEMIDE 40 MG INJ IV (15:39)
[2018-04-16 15:47] LABS: ADD MAN DIFF? NO
[2018-04-16 15:55] LABS: WHITE BLOOD COUNT 11.7 10^3/ul (4.8-10.8)
[2018-04-16 15:55] LABS: BASOPHILS % 0.3 % (0.0-2.0); EOSINOPHILS # 0.2 10^3/ul (0.0-0.5); EOSINOPHILS % 2.1 % (0.0-7.0); HEMOGLOBIN 14.3 g/dl (14.0-18.0); LYMPHOCYTES # 1.9 10^3/ul (0.8-2.9); LYMPHOCYTES % 16.2 % (15.0-51.0); MEAN CORPUSCULAR HGB CONC 31.8 g/dl (32.0-37.0); MEAN CORPUSCULAR VOLUME 81.8 fl (82.0-101.0); MEAN PLATELET VOLUME 9.2 fl (7.4-10.4); MONOCYTE # 0.9 10^3/ul (0.3-0.9); MONOCYTES % 7.5 % (0.0-11.0); NEUTROPHIL # 8.6 10^3/ul (1.6-7.5); NEUTROPHILS % 73.5 % (39.0-77.0); PLATELET COUNT 200 10^3/UL (140-415); RED CELL DISTRIBUTION WIDTH 14.2 % (11.5-14.5)
[2018-04-16 16:17] LABS: ALANINE AMINOTRANSFERASE 20 IU/L (13-69); ALBUMIN 3.4 g/dl (3.3-4.9); ALBUMIN/GLOBULIN RATIO 0.91; ALKALINE PHOSPHATASE 57 IU/L (42-121); ANION GAP 8 (5-13); ASPARTATE AMINO TRANSFERASE 19 IU/L (15-46); BILIRUBIN,INDIRECT 0.2 mg/dl (0-1.1); BILIRUBIN,TOTAL 0.2 mg/dl (0.2-1.3); BLOOD UREA NITROGEN 23 mg/dl (7-20); CALCIUM 9.2 mg/dl (8.4-10.2); CARBON DIOXIDE 32 mmol/L (21-31); CHLORIDE 96 mmol/L (97-110); CREATININE 1.28 mg/dl (0.61-1.24); Estimated GFR 59 mL/min (>60); GLUCOSE 187 mg/dl (70-220); POTASSIUM 4.5 mmol/L (3.5-5.1); SODIUM 136 mmol/L (135-144); TOTAL PROTEIN 7.1 g/dl (6.1-8.1)
[2018-04-16 16:29] LABS: B-TYPE NATRIURETIC PEPTIDE 71 PG/ML (0-125); TROPONIN-I < 0.012 ng/ml (0.000-0.120)
== END 2018-04-16 18:13 | disposition home or self-care (01) ==
LOC: E/R 15:14
DX: I11.0 Hypertensive heart disease with heart failure (principal); I50.40 Unspecified combined systolic (congestive) and diastolic (congestive) heart failure; J44.9 Chronic obstructive pulmonary disease, unspecified; R40.2252 Coma scale, best verbal response, oriented, at arrival to emergency department; R40.2142 Coma scale, eyes open, spontaneous, at arrival to emergency department; R40.2362 Coma scale, best motor response, obeys commands, at arrival to emergency department; Z79.4 Long term (current) use of insulin; Z95.0 Presence of cardiac pacemaker; Z79.82 Long term (current) use of aspirin
CPT/HCPCS: 36415; 71045; 80053; 83880; 84484; 85025; 93005; 96374; 99285-25